=== PATIENT | male | born 2000 | race Caucasian/White ===

== ENCOUNTER → 2023-03-25 | Outpatient (CLI) | payer OTHER, SELFPAY ==
[2023-03-25 12:33] LABS: Erythrocyte Sedimentation Rate 1 mm/hr (0-20)
[2023-03-25 12:37] LABS: Absolute Lymphocyte Count 2.19 X10^3/uL (0.83-4.51); Absolute Neutrophil Count 3.4 X10^3/uL (2.0-7.7); Basophil# 0.02 X10^3/uL; Basophil% 0.3 % (0-1); Eosinophil# 0.16 X10^3/uL; Eosinophils% 2.5 % (0-5); Hematocrit 48.2 % (40-54); Hemoglobin 16.3 g/dL (13.0-16.5); Lymphocyte # 2.19 X10^3/ul (0.83-4.51); Lymphocyte % 34.5 % (19-41); Mean Corp Hgb Conc 33.8 g/dL (32-36); Mean Corpuscular Hgb 29.9 pg (27.0-32.0); Mean Corpuscular Volume 88.3 fL (80-94); Mean Platelet Vol. 9.6 fl (6.2-12.0); Monocyte# 0.57 X10^3/uL; NRBC Flagged by Analyzer 0 % (0-5); Neutrophil # 3.38 X10^3/uL (2.7-7.7); Neutrophil % 53.4 % (47-70); Platelet Count 289 K/mm3 (150-450); RBC Distribution Width CV 12.9 % (11.6-14.6); RBC Distribution Width SD 41.3 fl (35.1-43.9); Red Blood Count 5.46 M/mm3 (4.6-6.2); White Blood Count 6.3 K/mm3 (4.4-11.0)
[2023-03-25 13:12] LABS: ALB/GLOB Ratio 1.2 RATIO (0.9-2.4); AST(SGOT) 27 U/L (15-37); Alanine Aminotransfer ALT/SGPT 55 U/L (16-61); Albumin, Serum 4.2 g/dL (3.2-5.0); Alkaline Phosphatase 88 U/L (45-117); Anion Gap 5 (5-15); BUN 12 mg/dL (7-18); BUN/Creat Ratio 10.5 RATIO (10-20); CRP < 2.90 mg/L (0.0-3.0); Calcium,Total 9.2 mg/dL (8.5-10.1); Chloride 108 mmol/L (98-107); Creatinine, Serum 1.14 mg/dL (0.70-1.30); EST Glomerular Filtration Rate 87 mL/min (>60); Est Glom Filt Rate - Afr Amer 105 mL/min (>60); Globulin 3.4 g/dL (2.2-4.2); Glucose 90 mg/dL (74-106); Potassium 3.9 mmol/L (3.5-5.1); Protein, Total 7.6 g/dL (6.4-8.2); Rheumatoid Factor < 10.0 IU/mL (<15); Sodium Level 140 mmol/L (136-145)
[2023-03-25 14:01] LABS: Hepatitis B Surface Antibody Non-Reactive; Hepatitis B Surface Antigen Non-Reactive (Nonreactive); Hepatitis C Antibody Non-Reactive (Nonreactive)
[2023-03-26 12:09] LABS: CCP IgG Antibodies 5 units (0-19)
[2023-03-29 21:06] LABS: Calprotectin, Stool 41 ug/g (0-120)
== END | disposition home or self-care (01) ==
LOC: MTLAB 10:00
PROVIDERS: PCP Physician Assistant; Referring Provider Internal Medicine Rheumatology; Visit Provider Internal Medicine Rheumatology
DX: M06.4 Inflammatory polyarthropathy (principal); M35.7 Hypermobility syndrome; R19.7 Diarrhea, unspecified
CPT/HCPCS: 36415; 80053; 83993; 85025; 85652; 86140; 86200; 86431; 86706; 86803; 87340

== ENCOUNTER → 2023-06-29 | Outpatient (CLI) | payer BC, SELFPAY ==
--- OUTSIDE RECORDS SUMMARY | 2023-06-29 15:38 | XMS RPT_ITS | CCD ---
Author Name Unknown Address [address] [place] [id number] Organization [facility] Care Team Providers Care [place] Interpreter Name Role Phone Required, No Pcp Unavailable Unavailable Trinh Drake Unavailable Unavailable Ivan Clifton Unavailable Angel Parker Unavailable Stentz Joanie CROCKER Primary Care Provider STENTZ, JOANIE Primary Care Unavailable Dr. vIan Clifton Admitting Elsa vailable Etienne, Dr. Ivan Lemon Attending Elsa vailable Stentz, Joanie Primary Care Unavailable Stentz, Joanie Attending Unavailable Elena, Dr. Angel Gardner Attending Unavail able STENTZ, JOANIE Attending Unavailable STENTZ, JOANIE Primary Care Unavailable STENTZ, JOANIE Attending Unavailable STENTZ, JOANIE Referring Unavailable STENTZ, JOANIE Primary Care Unavailable STENTZ, JOANIE Attending Unavailable STENTZ, JOANIE Referring Unavailable STENTZ, JOANIE Primary Care Unavailable STENTZ, JOANIE Attending Unavailable STENTZ, JOANIE Referring Unavailable STENTZ, JOANIE Primary Care Unavailable Allergies Allergy Classification Reported Allergen(s) Allergy Type Date of Onset Reaction(s) Facility (1 source) peanut Anaphylaxis, Rash, Itching [facility] (6 sources) peanut allergenic extract; Translations: [PEANUT] Drug Allergy 3 Anaphylaxis, Itching, Unknown [facility] Medications Current Medications Medication Drug Class(es) Dates Sig (Normalized) Sig (Original) [id number] 200 actuat albuterol 0.09 mg/actuat metered dose inhaler (1 source) beta2-Adrenergic Agonist take 2 puff(s) by inhalation every six hours for wheezing albuterol (Ventolin HFA) 90 mcg/actuation inhaler Inhale 2 puffs every 6 hours if needed for wheezing. 0 Active 24 hr buPROPion hydrochloride 150 mg extended release oral tablet (1 source) Aminoketone Start: 04-16-2023 End: 07-15-2023 take 1 tablet by mouth once daily in the morning buPROPion XL (Wellbutrin XL) 150 mg 24 hr tablet Indications: Anxiety Take 1 tablet (150 mg) by mouth once daily in the morning. Do not crush, chew, or split. 30 tablet 2 04/16/2023 07/15/2023 Active cholecalciferol 0.125 mg oral tablet (1 source) Vitamin D Start: 04-16-2023 End: 04-15-2024 take 2 tablets by mouth once daily cholecalciferol (Vitamin D3) 5,000 Units tablet Indications: Vitamin D deficiency Take 2 tablets (10,000 Units) by mouth once daily. 180 tablet 3 04/16/2023 04/15/2024 Active diphenhydrAMINE hydrochloride 25 mg oral capsule (1 source) Histamine-1 Receptor Antagonist take 2 capsules by mouth every six hours as needed Benadryl 25 mg oral capsule ; 2 cap(s) orally every 6 hours, As Needed Quantity: 0 Refills: 0 Ordered: 18-Aug-2022 Amanda Eubanks Generic Substitution Allowed ergocalciferol 1.25 mg oral capsule (3 sources) Provitamin D2 Compound Start: 12-16-2022 End: 12-16-2023 take 1 capsule by mouth every week ergocalciferol (Vitamin D-2) 1.25 MG (67989 UT) capsule Indications: Vitamin D deficiency Take 1 capsule (50,000 Units) by mouth 1 (one) time per week. 12 capsule 3 12/16/2022 04/16/2023 Discontinued (Other) fexofenadine (5 sources) Histamine-1 Receptor Antagonist fexofenadine HCl (DOLLY ALLERGY ORAL) Take 1 tablet by mouth. 0 Active Problems Active Problems Problem Classification Problem Date Documented Da te Episodic/Chronic Anxiety disorders (6 sources) Anxiety; Translations: [Anxiety disorder, unspecified] Onset: 02-26-2023 02-26-2023 Chronic Asthma (5 sources) Mild intermittent asthma; Translations: [Mild intermittent asthma, uncomplicated] Onset: 01-16-2023 01-16-2023 Chronic Nutritional deficiencies (4 sources) Vitamin D deficiency; Translations: [Vitamin D deficiency, unspecified] Onset: 04-16-2023 04-16-2023 Chronic Other connective tissue disease (1 source) Pain in left hand; Translations: [Pain in left hand] Onset: 12-15-2022 Episodic Other connective tissue disease (1 source) Pain in right hand; Translations: [Pain in right hand] Onset: 12-15-2022 Episodic Other gastrointestinal disorders (9 sources) Irritable bowel syndrome with diarrhea; Translations: [Irritable bowel syndrome with diarrhea] Onset: 12-15-2022 12-15-2022 Chronic Other gastrointestinal disorders (1 source) Irritable bowel syndrome with diarrhea; Translations: [Irritable bowel syndrome with diarrhea] Onset: 12-15-2022 Chronic Other gastrointestinal disorders (4 sources) Excessive flatus; Translations: [Flatulence] Onset: 01-16-2023 01-16-2023 Episodic Other non-traumatic joint disorders (8 sources) Joint pain; Translations: [Pain in unspecified joint] Onset: 12-15-2022 12-15-2022 Episodic Other non-traumatic joint disorders (7 sources) Pain in unspecified joint; Translations: [Pain in unspecified joint] Onset: 12-15-2022 Episodic Other nutritional; endocrine; and metabolic disorders (5 sources) Obesity; Translations: [Other obesity due to excess calories] Onset: 12-15-2022 12-15-2022 Chronic Other nutritional; endocrine; and metabolic disorders (4 sources) Other obesity due to excess calories; Translations: [Other obesity due to excess calories] Onset: 12-15-2022 Chronic Other nutritional; endocrine; and metabolic disorders (4 sources) Body mass index (BMI) 35.0-35.9, adult; Translations: [Body mass index (BMI) 35.0-35.9, adult] Onset: 12-15-2022 Chronic Other nutritional; endocrine; and metabolic disorders (1 source) Obesity caused by energy imbalance; Translations: [Other obesity due to excess calories] Onset: 12-15-2022 12-15-2022 Chronic Other upper respiratory disease (2 sources) Seasonal allergy 10-15-2021 Chronic Past or Other Problems Problem Classification Problem Date Documented Da te Episodic/Chronic Allergic reactions (4 sources) Allergic reaction to food; Translations: [Allergy to other foods] Onset: 08-18-2022 08-18-2022 Episodic E Codes: Adverse effects of medical drugs (1 source) Allergic reaction to substance; Translations: [Other drug allergy] Resolved: 08-18-2022 08-18-2022 Episodic Malaise and fatigue (5 sources) Fatigue; Translations: [Other fatigue] Onset: 12-15-2022 12-15-2022 Episodic Nausea and vomiting (1 source) Vomiting, unspecified; Translations: [Vomiting, unspecified] Onset: 08-18-2022 Episodic Other inflammatory condition of skin (1 source) Pruritus, unspecified; Translations: [Pruritus, unspecified] Onset: 08-18-2022 Episodic Other lower respiratory disease (1 source) Shortness of breath; Translations: [Shortness of breath] Onset: 08-18-2022 Episodic Other upper respiratory infections (1 source) Acute pharyngitis, unspecified; Translations: [Acute pharyngitis, unspecified] Onset: 08-18-2022 Episodic Unclassified (4 sources) Onset: 12-15-2022 Resolved: 01-16-2023 12-15-2022 Results Test Name Value Interpretation Reference Range Facil ity Vital Signs Date Time Vital Sign Value Performing Clinician Facility 04-16-2023 12:14-0400 Body height 185.4 cm Joanie Stentz PA-C Work Phone: [facility] 04-16-2023 12:14-0400 Body mass index (BMI) [Ratio] 33.78 kg/m2 Joanie Stentz PA-C Work Phone: [facility] 04-16-2023 12:14-0400 Body weight 116.12 kg Joanie Stentz PA-C Work Phone: [facility] 04-16-2023 12:14-0400 Diastolic blood pressure 82 mm[Hg] Joanie Stentz PA-C Work Phone: [facility] 04-16-2023 12:14-0400 Heart rate 84 /min Joanie Stentz PA-C Work Phone: [facility] 04-16-2023 12:14-0400 Systolic blood pressure 128 mm[Hg] Joanie Stentz PA-C Work Phone: [facility] 02-26-2023 13:14-0400 Body height 185.4 cm Joanie Stentz PA-C Work Phone: [facility] 02-26-2023 13:14-0400 Body mass index (BMI) [Ratio] 35.36 kg/m2 Joanie Stentz PA-C Work Phone: [facility] 02-26-2023 13:14-0400 Body weight 121.56 kg Joanie Stentz PA-C Work Phone: [facility] 02-26-2023 13:14-0400 Diastolic blood pressure 84 mm[Hg] Joanie Stentz PA-C Work Phone: [facility] 02-26-2023 13:14-0400 Heart rate 73 /min Joanie Stentz PA-C Work Phone: [facility] 02-26-2023 13:14-0400 Systolic blood pressure 122 mm[Hg] Joanie Stentz PA-C Work Phone: [facility] 01-16-2023 15:38-0400 Body height 185.4 cm Joanie Stentz PA-C Work Phone: [facility] 01-16-2023 15:38-0400 Body mass index (BMI) [Ratio] 34.96 kg/m2 Joanie Stentz PA-C Work Phone: [facility] 01-16-2023 15:38-0400 Body weight 120.2 kg Joanie Stentz PA-C Work Phone: [facility] 01-16-2023 15:38-0400 Diastolic blood pressure 88 mm[Hg] Joanie Stentz PA-C Work Phone: [facility] 01-16-2023 15:38-0400 Heart rate 80 /min Joanie Stentz PA-C Work Phone: [facility] 01-16-2023 15:38-0400 Systolic blood pressure 130 mm[Hg] Joanie Stentz PA-C Work Phone: [facility] 12-15-2022 16:11-0400 Body height 185.4 cm Joanie Stentz PA-C Work Phone: [facility] 12-15-2022 16:11-0400 Body mass index (BMI) [Ratio] 35.49 kg/m2 Joanie Stentz PA-C Work Phone: [facility] 12-15-2022 16:11-0400 Body weight 122.02 kg Joanie Stentz PA-C Work Phone: [facility] 12-15-2022 16:11-0400 Diastolic blood pressure 80 mm[Hg] Joanie Stentz PA-C Work Phone: [facility] 12-15-2022 16:11-0400 Heart rate 86 /min Joanie Stentz PA-C Work Phone: [facility] 12-15-2022 16:11-0400 Systolic blood pressure 122 mm[Hg] Joanie Stentz PA-C Work Phone: [facility] 08-18-2022 23:30-0500 Diastolic blood pressure 88 mm[Hg] No Pcp Required [facility] 08-18-2022 23:30-0500 Heart rate 81 /min No Pcp Required [facility] 08-18-2022 23:30-0500 Respiratory rate 16 /min No Pcp Required [facility] 08-18-2022 23:30-0500 SaO2% (BldA) [Mass fraction] 98 % No Pcp Required [facility] 08-18-2022 23:30-0500 Systolic blood pressure 126 mm[Hg] No Pcp Required [facility] 08-18-2022 21:37-0500 Body height 185.4 cm No Pcp Required [facility] 08-18-2022 21:37-0500 Body temperature 97.7 [degF] No Pcp Required [facility] 08-18-2022 21:37-0500 Body weight 113.6 kg No Pcp Required [facility] 10-23-2021 22:11-0400 Diastolic blood pressure 97 mm[Hg] No Pcp Required [facility] 10-23-2021 22:11-0400 Heart rate 81 /min No Pcp Required [facility] 10-23-2021 22:11-0400 Respiratory rate 18 /min No Pcp Required [facility] 10-23-2021 22:11-0400 SaO2% (BldA) [Mass fraction] 97 % No Pcp Required [facility] 10-23-2021 22:11-0400 Systolic blood pressure 128 mm[Hg] No Pcp Required [facility] 10-23-2021 21:05-0400 Body height 182.8 cm No Pcp Required [facility] 10-23-2021 21:05-0400 Body temperature 98.06 [degF] No Pcp Required [facility] 10-23-2021 21:05-0400 Body weight 110 kg No Pcp Required [facility] Encounters Encounter Date Encounter Type Care Provider Facility Start: 04-16-2023 End: 04-16-2023 ambulatory [facility] Ambulatory Start: 04-16-2023 End: 04-16-2023 Office outpatient visit 25 minutes Joanieleslee Romo PA-C Work Phone: [facility] Practice Procedures Date Procedure Procedure Detail Performing Clinician Start: 04-16-2023 FOLLOW UP IN FAMILY MEDICINE JOANIE STENTZ Start: 02-26-2023 FOLLOW UP IN FAMILY MEDICINE JOANIE STENT Start: 01-16-2023 FOLLOW UP IN FAMILY MEDICINE JOANIE STENT Start: 12-15-2022 MASOUD WITHOUT REFLEX DEENA JOANIE STENTZ Start: 12-15-2022 C-reactive protein JUST IN STENTZ Start: 12-15-2022 CBC panel - Blood by Automated count JOANIE STENT Start: 12-15-2022 Comprehensive metabo lic 2000 panel - Serum or Plasma JOANIE STENT Start: 12-15-2022 Cyanocobalamin vitamin b-12 JOANIE STENTZ Start: 12-15-2022 Ferritin [Mass/volum e] in Serum or Plasma JOANIE STENTZ Start: 12-15-2022 RHEUMATOID FACTOR JUSTI N STENTZ Start: 12-15-2022 SEDIMENTATION RATE, AUTOMATED JOANIE STENTZ Start: 12-15-2022 TSH WITH REFLEX TO F REE T4 IF ABNORMAL JOANIE STENTZ Start: 12-15-2022 VITAMIN D 25-HYDROXY,TOTAL JOANIE STENTZ Plan of Treatment Date Care Activity Detail Author Start: 2052 Zoster Vaccines (1 o f 2) Zoster Vaccines (1 of 2) [facility] Start: 07-02-2023 End: 07-02-2023 Patient encounter procedure 07/02/2023 10:00 AM EST Office Visit [facility] [address] [place] [id number] Joanie Romo PA-C [address] [facility] [place] [address] [facility] Start: 02-26-2023 End: 02-26-2023 Patient encounter procedure 02/26/2023 1:15 PM EDT Office Visit [facility] [address] [place] [id number] Joanie Romo PA-C [address] [facility] [place] [address] [facility] Start: 02-20-2023 Influenza vaccination [facility] Start: 01-16-2023 End: 01-16-2023 Patient encounter procedure 01/16/2023 3:45 PM EDT Office Visit [facility] [address] [place] [id number] Joanie Romo PA-C [address] [facility] [place] [address] [facility] Start: 12-15-2022 End: 12-16-2023 25-hydroxyvitamin D3 [Mass/volume] in Serum or Plasma Vitamin D, Total Lab Routine Fatigue, unspecified type Expected: 12/15/2022 (Approximate), Expires: 12/16/2023 [facility] Work Phone: Payers Date Payer Category Payer Unknown 2020 Unknown [id number] 2002 Unknown [id number] [id number] [id number] 2002 Unknown [id number] 2.16.8 [id number] 2002 Unknown [id number] 2.16.8 [id number] 2002 Unknown [id number] 2.16.8 [id number] 2002 Unknown [id number] 2.16.8 [id number] 2002 Unknown [id number] 2.16.8 [id number] 2002 Unknown [id number] 2.16.8 [id number] 2002 Unknown [id number] 2.16.84 [id number] Social History Date Type Detail Facility [facility] Tobacco smoking consumption unknown [facility] Start: 12-15-2022 End: 01-16-2023 History of Social function [facility] Work Phone: Start: 12-15-2022 End: 01-16-2023 Patient Health Questionnaire 2 item (PHQ-2) [Reported] [facility] Work Phone: Start: 2000 Sex Assigned At Not on file [facility] Work Phone: Start: 12-05-2022 End: 04-16-2023 Exposure to SARS-CoV-2 (event) Not sure [facility] Start: 01-16-2023 Tobacco smoking status NHIS Never smoked tobacco [facility] Work Phone: Start: 01-16-2023 Tobacco use and exposure Smokeless tobacco non-user [facility] Work Phone: Clinical Notes 12-15-2022 to 04-16-2023 Joanie Romo, LIZZETTE - 04/16/2023 12:15 PM EDTJustin Stentz, LIZZETTE - 02/26/2023 1:15 PM EDTJustin Stentz, LIZZETTE - 01/16/2023 3:45 PM EDTJustin Stentz, LIZZETTE - 12/15/2022 4:15 PM EDTPatient Instructions Note Date & Type Note Facility 04-16-2023 History of Presen t illness Narrative Subjective Patient ID: Julian Jernigan is a 22 y.o. male who presents for 2 month med check . HPI Senior year at [employer]. IBS: Endorses chronic stomach concerns. Upset stomach with loose stool for the last 4 years, very few days will he have firm stool. Excessive gas. Has been taking fiber gummies 10mg daily, has increased yogurt intake. Has ruled out gluten through diet, avoided dairy for 7 days and it did not seem to improve completely. Symptoms have been more mild lately, feels less stressed being back in school, feels lower stress level improves GI symptoms. Has been doing well with this. Has been eating smaller portions and hydrating better, less soda. JOINT PAIN: Multiple joint pain for years now, pain is described as achy all over at a 2/10, knuckles/shoulders constant 4/10. Pressure changes and if he sleeps wrong or overuses a joint pain will become sharp and 7/10. 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 Has been just dealing with this since then. Can't remember if Xrays in the past. Has used an arthritis cream in the past for his hands which helps for only about 1 hour. Symptoms are only mildly relieved with ibuprofen. Pain is in multiple joints, worse from BL shoulder distally through hands, then BL hips to knees. He did see an arthritis specialist about 2 years ago who did not find cause of joint pain. BL hand Xray recently unremarkable. Labs recently unremarkable. Saw Dr. Bob, she would like him to see GI in [place]. He has been unable to schedule this. He will ask her about it again when he sees her tomorrow. Still no diagnosis. LOW D: D level 21 12/15/22, started 50,000IU weekly, has not been compliant. Would like to go to daily. SEASONAL ALLERGIES: Dolly prn effective. ASTHMA: Endorses hx of asthma, has rescue on hand prn. Has only used inhaler once since last visit. ANXIETY: Started Effexor 75mg last visit 2 months ago. GABINO score of 10, PHQ score of 9. He sees therapist every other week. He does endorse Effexor has helped. He endorses racing thoughts chronically and split focus as well. Review of Systems Constitutional: Negative. Respiratory: Negative. Cardiovascular: Negative. Gastrointestinal: Negative. Objective BP 128/82 Pulse 84 Ht 1.854 m (6' 1 ) Wt 116 kg (256 lb) BMI 33.78 kg/m Physical Exam Constitutional: General: He is not in acute distress. Appearance: Normal appearance. He is not ill-appearing. HENT: Head: Normocephalic and atraumatic. Eyes: Extraocular Movements: Extraocular movements intact. Conjunctiva/sclera: Conjunctivae normal. Cardiovascular: Rate and Rhythm: Normal rate. Pulmonary: Effort: Pulmonary effort is normal. Abdominal: General: There is no distension. Musculoskeletal: General: Normal range of motion. Cervical back: Normal range of motion. Skin: General: Skin is warm and dry. Neurological: General: No focal deficit present. Mental Status: He is alert and oriented to person, place, and time. Psychiatric: Mood and Affect: Mood normal. Behavior: Behavior normal. Thought Content: Thought content normal. Judgment: Judgment normal. Assessment/Plan Switch Vit D to daily [id number]. Continue Effexor, start wellbutrin 150mg daily. Continue with Dr. Bob. Follow up 3 months or sooner prn. documented in this encounter [facility] Work Phone: 02-26-2023 History of Presen t illness Narrative Subjective Patient ID: Julian Jernigan is a 22 y.o. male who presents for 1 month f/u, pt still having all over joint pain. HPI Senior year at [employer]. IBS: Endorses chronic stomach concerns. Upset stomach with loose stool for the last 4 years, very few days will he have firm stool. Excessive gas. Has been taking fiber gummies 10mg daily, has increased yogurt intake. Has ruled out gluten through diet, avoided dairy for 7 days and it did not seem to improve completely. Symptoms have been more mild lately, feels less stressed being back in school, feels lower stress level improves GI symptoms. JOINT PAIN: Multiple joint pain for years now, pain is described as achy all over at a 2/10, knuckles/shoulders constant 4/10. Pressure changes and if he sleeps wrong or overuses a joint pain will become sharp and 7/10. 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 Has been just dealing with this since then. Can't remember if Xrays in the past. Has used an arthritis cream in the past for his hands which helps for only about 1 hour. Symptoms are only mildly relieved with ibuprofen. Pain is in multiple joints, worse from BL shoulder distally through hands, then BL hips to knees. He did see an arthritis specialist about 2 years ago who did not find cause of joint pain. BL hand Xray recently unremarkable. Labs recently unremarkable. Was unable to see Dr. Bob d/t aunt passing away, he is in process of rescheduling currently. LOW D: D level 21 12/15/22, started 50,000IU weekly. SEASONAL ALLERGIES: Dolly prn effective. ASTHMA: Endorses hx of asthma, has rescue on hand prn. Using inhaler about 4 times monthly. ANXIETY: Endorses hx of anxiety, not medicated. GABINO score of 15, PHQ score of 8. Would like to start medication. Has sees therapist every other week. Review of Systems Constitutional: Negative. Respiratory: Negative. Cardiovascular: Negative. Gastrointestinal: Positive for diarrhea. Objective BP 122/84 Pulse 73 Ht 1.854 m (6' 1 ) Wt 122 kg (268 lb) BMI 35.36 kg/m Physical Exam Constitutional: General: He is not in acute distress. Appearance: Normal appearance. He is not ill-appearing. HENT: Head: Normocephalic and atraumatic. Eyes: Extraocular Movements: Extraocular movements intact. Conjunctiva/sclera: Conjunctivae normal. Cardiovascular: Rate and Rhythm: Normal rate. Pulmonary: Effort: Pulmonary effort is normal. Abdominal: General: There is no distension. Musculoskeletal: General: Normal range of motion. Cervical back: Normal range of motion. Skin: General: Skin is warm and dry. Neurological: General: No focal deficit present. Mental Status: He is alert and oriented to person, place, and time. Psychiatric: Mood and Affect: Mood normal. Behavior: Behavior normal. Thought Content: Thought content normal. Judgment: Judgment normal. Assessment/Plan We will follow up after he sees Dr. Bob. Start Effexor XR 75mg daily. Rx meloxicam prn joint pain until he sees Dr. Bob. Follow up 2 months or sooner prn. documented in this encounter [facility] Work Phone: 01-16-2023 History of Presen t illness Narrative Subjective Patient ID: Julian Jernigan is a 22 y.o. male who presents for 1 month f/u stomach issues worse, joint pain . HPI Senior year at [employer]. IBS: Endorses chronic stomach concerns. Upset stomach with loose stool for the last 4 years, very few days will he have firm stool. Excessive gas. Has been taking fiber gummies 10mg daily, has increased yogurt intake, has not seemed to improve symptoms. Has ruled out gluten through diet, avoided dairy for 7 days and it did not seem to improve completely. JOINT PAIN: Multiple joint pain for years now, pain is described as achy all over at a 2/10, knuckles/shoulders constant 4/10. Pressure changes and if he sleeps wrong or overuses a joint pain will become sharp and 7/10. 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 Has been just dealing with this since then. Can't remember if Xrays in the past. Has used an arthritis cream in the past for his hands which helps for only about 1 hour. Symptoms are only mildly relieved with ibuprofen. Pain is in multiple joints, worse from BL shoulder distally through hands, then BL hips to knees. He did see an arthritis specialist about 2 years ago who did not find cause of joint pain. BL hand Xray recently unremarkable. Labs recently unremarkable. Will see Dr. Bob in [place] in about 1 month. LOW D: D level 21 12/15/22, started 50,000IU weekly. SEASONAL ALLERGIES: Dolly prn effective. ASTHMA: Endorses hx of asthma, has rescue on hand prn. Using inhaler about 4 times monthly. ANXIETY: Endorses hx of anxiety, not medicated. Stable currently. Review of Systems Constitutional: Negative. Respiratory: Negative. Cardiovascular: Negative. Gastrointestinal: Negative. Objective BP 130/88 Pulse 80 Ht 1.854 m (6' 1 ) Wt 120 kg (265 lb) BMI 34.96 kg/m Physical Exam Constitutional: General: He is not in acute distress. Appearance: Normal appearance. He is not ill-appearing. HENT: Head: Normocephalic and atraumatic. Eyes: Extraocular Movements: Extraocular movements intact. Conjunctiva/sclera: Conjunctivae normal. Cardiovascular: Rate and Rhythm: Normal rate. Pulmonary: Effort: Pulmonary effort is normal. Abdominal: General: There is no distension. Musculoskeletal: General: Normal range of motion. Cervical back: Normal range of motion. Skin: General: Skin is warm and dry. Neurological: General: No focal deficit present. Mental Status: He is alert and oriented to person, place, and time. Psychiatric: Mood and Affect: Mood normal. Behavior: Behavior normal. Thought Content: Thought content normal. Judgment: Judgment normal. Assessment/Plan Rx loperamide TID prn, take before meals. Advised otc gas relief for excessive gas, avoid trigger foods. We will follow up after he sees Dr. Bob next month. documented in this encounter [facility] Work Phone: 12-15-2022 History of Presen t illness Narrative Subjective Patient ID: Julian Jernigan is a 22 y.o. male who presents for new pt having issues with all over joint pain (Pt has issues with regulating when full while eating, bloating, loose stools, has BM soon after eating). HPI Senior year at [facility]. IBS: Endorses chronic stomach concerns. Upset stomach with loose stool for the last 4 years, very few days will he have firm stool. JOINT PAIN: Multiple joint pain for years now, pain is described as achy all over at a 2/10, knuckles/shoulders constant 4/10. Pressure changes and if he sleeps wrong or overuses a joint pain will become sharp and 7/10. 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 Has been just dealing with this since then. Can't remember if Xrays in the past. Has used an arthritis cream in the past for his hands which helps for only about 1 hour. Symptoms are only mildly relieved with ibuprofen. Pain is in multiple joints, worse from BL shoulder distally through hands, then BL hips to knees. He did see an arthritis specialist about 2 years ago who did not find cause of joint pain. Endorses hx of asthma, has rescue on hand prn. Using inhaler about 4 times monthly. Endorses hx of anxiety, not medicated. Review of Systems Constitutional: Positive for fatigue. Respiratory: Negative. Cardiovascular: Negative. Gastrointestinal: Negative. Objective BP 122/80 Pulse 86 Ht 1.854 m (6' 1 ) Wt 122 kg (269 lb) BMI 35.49 kg/m Physical Exam Constitutional: General: He is not in acute distress. Appearance: Normal appearance. He is not ill-appearing or toxic-appearing. HENT: Head: Normocephalic and atraumatic. Eyes: Extraocular Movements: Extraocular movements intact. Conjunctiva/sclera: Conjunctivae normal. Cardiovascular: Rate and Rhythm: Normal rate and regular rhythm. Heart sounds: Normal heart sounds. No murmur heard. No gallop. Pulmonary: Effort: Pulmonary effort is normal. Breath sounds: Normal breath sounds. No stridor. No wheezing. Abdominal: General: Bowel sounds are normal. There is no distension. Palpations: Abdomen is soft. Tenderness: There is no abdominal tenderness. There is no right CVA tenderness, left CVA tenderness, guarding or rebound. Musculoskeletal: General: Normal range of motion. Cervical back: Neck supple. Skin: General: Skin is warm and dry. Findings: No erythema or rash. Neurological: General: No focal deficit present. Mental Status: He is alert and oriented to person, place, and time. Psychiatric: Mood and Affect: Mood normal. Behavior: Behavior normal. Thought Content: Thought content normal. Judgment: Judgment normal. Assessment/Plan BL hand Xray Ordered an array of labs looking for abnormalities concerning joint paint and general health. Advised increased fiber and probiotics for IBS as well as food diary to identify problem foods, most likely stress/anxiety is a component of IBS as well. He does worry concerning his health quite often and think he may be mentally causing some of his symptoms specifically IBS. We will follow up in 1 month or sooner prn. documented in this encounter [facility] Work Phone: 12-15-2022 Instructions Joanie Romo PA-C - 12/15/2022 4:15 PM EDT Ways to Help Prevent Falls at Home Quick Tips ? Ask for help if you need it. Most people want to help! ? Get up slowly after sitting or laying down ? Wear a medical alert device or keep cell phone in your pocket ? Use night lights, especially areas near a bathroom ? Keep the items you use often within reach on a small stool or end table ? Use an assistive device such as walker or cane, as directed by provider/physical therapy ? Use a non-slip mat and grab bars in your bathroom. Look for home health sections for best options Other Areas to Focus On ? Exercise and nutrition: Regular exercise or taking a falls prevention class are great ways improve strength and balance. Don t forget to stay hydrated and bring a snack! ? Medicine side effects: Some medicines can make you sleepy or dizzy, which could cause a fall. Ask your healthcare provider about the side effects your medicines could cause. Be sure to let them know if you take any vitamins or supplements as well. ? Tripping hazards: Remove items you could trip on, such as loose mats, rugs, cords, and clutter. Wear closed toe shoes with rubber soles. ? Health and wellness: Get regular checkups with your healthcare provider, plus routine vision and hearing screenings. Talk with your healthcare provider about: o Your medicines and the possible side effects - bring them in a bag if that is easier! o Problems with balance or feeling dizzy o Ways to promote bone health, such as Vitamin D and calcium supplements o Questions or concerns about falling *Ask your healthcare team if you have questions [facility]2021 documented in this encounter [facility] Work Phone: documented in this encounter [facility] Work Phone: Evaluation note* Diagnosis Irritable bowel syndrome with diarrhea- Primary Irritable bowel syndrome Arthralgia, unspecified joint Class 2 obesity due to excess calories without serious comorbidity with body mass index (BMI) of 35.0 to 35.9 in adult Excessive gas Mild intermittent asthma without complication documented in this encounter [facility] Work Phone: Evaluation note* Diagnosis Arthralgia, unspecified joint- Primary Anxiety Anxiety state, unspecified Irritable bowel syndrome with diarrhea Irritable bowel syndrome documented in this encounter [facility] Work Phone: Evaluation note* Diagnosis Anxiety- Primary Anxiety state, unspecified Vitamin D deficiency Arthralgia, unspecified joint Mild intermittent asthma without complication Irritable bowel syndrome with diarrhea Irritable bowel syndrome documented in this encounter [facility] Work Phone: Reason for referral (narrative)* Consultation (Routine) - Authorized Specialty Diagnoses / Procedures Referred By Jorge Luis holt Referred To Contact Primary Care Procedures Follow Up In Primary Care Joanie Romo PA-C [address] [facility] [place], [place] [address] Referral ID Status Reason Start Date Expiration Date V isits Requested Visits Authorized [id number] Authorized 12/15/2022 06/13/2023 1 1 * Imaging (Routine) - Authorized Specialty Diagnoses / Procedures Referred By Contac t Referred To Contact Radiology Diagnoses Arthralgia, unspecified joint Procedures XR hand 1-2 views bilateral Joanie Romo PA-C [address] [facility] [place], [place] [id number] Referral ID Status Reason Start Date Expiration Date Visits Requested Visits Authorized [id number] Authorized Perform Procedure 12/15/2022 06/13/2023 1 1 [facility] Work Phone: Reeqsg for referral (narrative)* Consultation (Routine) - Authorized Specialty Diagnoses / Procedures Referred By Contac t Referred To Contact Primary Care Procedures Follow Up In Primary Care - Established Joanie Romo PA-C [address] [facility] [place], [place] [address] Referral ID Status Reason Start Date Expiration Date V isits Requested Visits Authorized [id number] Authorized 01/16/2023 07/15/2023 1 1 [facility] Work Phone: reason for referral (narrative)* Consultation (Routine) - Authorized Specialty Diagnoses / Procedures Referred By Contac t Referred To Contact Primary Care Procedures Follow Up In Primary Care - Established Joanie Romo PA-C [address] [facility] [place], [place] [id number] Referral ID Status Reason Start Date Expiration Date V isits Requested Visits Authorized [id number] Authorized 02/26/2023 08/25/2023 1 1 [facility] Work Phone: Rervzu for referral (narrative)* Consultation (Routine) - Authorized Specialty Diagnoses / Procedures Referred By Contac t Referred To Contact Primary Care Procedures Follow Up In Primary Care - Established Joanie Romo PA-C [address] [facility] [place], [place] [address] [place] [phone] Referral ID Status Reason Start Date Expiration Date V isits Requested Visits Authorized [id number] Authorized 04/16/2023 04/15/2024 1 1 [facility] Work Phone: Summary Purpose Family History No Family History Records FoundNo Family History Records FoundNo Family History Records Found Advance Directives No Advanced Directives Records FoundNo Advanced Directives Records FoundNo Advanced Directives Records Found Additional Source Comments <item><item> Privacy Markings (unrecogniz ed section and content) Section Author: Brooklyn Rothman PROHIBITION ON REDISCLOSURE OF CONFIDENTIAL INFORMATION This notice accompanies a disclosure of information concerning a client made to you with the consent of such client. Section Author: Brooklyn Rothman PROHIBITION ON REDISCLOSURE OF CONFIDENTIAL INFORMATION This notice accompanies a disclosure of information concerning a client made to you with the consent of such client. Reason for Visit (unrecogniz ed section and content) Specialty Diagnoses / Procedures Referred By Jorge Luis t Referred To Contact Primary Care Procedures Follow Up In Primary Care - Established Joanie Romo PA-C [address] [facility] [place], [facility] [address] [place] [phone] Referral ID Status Reason Start Date Expiration Date V isits Requested Visits Authorized [id number] Authorized 02/26/2023 08/25/2023 1 1 Reason Comments new pt having issues with al l over joint pain Pt has issues with regulating when full while eating, bloating, loose stools, has BM soon after eating Reason Comments 1 month f/u stomach issues worse, joint pain Specialty Diagnoses / Procedures Referred By Jorge Luis t Referred To Contact Primary Care Procedures Follow Up In Primary Care Joanie Romo PA-C [address] [facility], [facility] [address] [place] [address] Referral ID Status Reason Start Date Expiration Date V isits Requested Visits Authorized [id number] Authorized 12/15/2022 06/13/2023 1 1 Reason Comments 1 month f/u, pt still having all over javon int pain Referral ID Status Reason Start Date Expiration Date V isits Requested Visits Authorized [id number] Authorized 01/16/2023 07/15/2023 1 1 Care Teams (unrecognized sec tion and content) Park Interpreter Relationship Specialty Start Date End Date Joanie Romo PA-C [address] [facility], [place] [address] PCP - General Family Medicine 12/04/22 Park Interpreter Relationship Specialty Start Date End Date Joanie Romo PA-C [address] [facility] [place], [place] [address] PCP - General Family Medicine 12/04/22 Park Interpreter Relationship Specialty Start Date End Date Joanie Romo PA-C [address] [facility], [place] [address] PCP - General Family Medicine 12/04/22 (unrecognized sect ion and content) No Status Records FoundNo Status Records FoundNo Status Records Found INFORMATION SOURCE (unrecogn ized section and content) DATE CREATED AUTHOR AUTHOR'S ISAAC ATION 12/20/2022 [facility] DATE CREATED AUTHOR AUTHOR'S ORGANIZ ATION 04/19/2023 [facility] FOR RECORDS PERTAINING TO PATIENTS WHO ARE OR HAVE BEEN ENROLLED IN A CHEMICAL DEPENDENCY/SUBSTANCEABUSE PROGRAM, SOME INFORMATION MAY BE OMITTED. This clinical summary was aggregated from multiple sources. Caution should be exercised in using it in the provision of clinical care. This summary normalizes information from multiple sources, and as a consequence, information in this document may materially change the coding, format and clinical context of patient data. In addition, data may be omitted in some cases. CLINICAL DECISIONS SHOULD BE BASED ON THE PRIMARY CLINICAL RECORDS. [facility] [employer] provides no warranty or guarantee of the accuracy or completeness of information in this document.
[2023-07-01 15:08] LABS: Endomysial Antibody IgA Negative (Negative); Immunoglobulin A 147 mg/dL (90-386); t-Transglutaminase IgA <2 U/mL (0-3)
== END | disposition home or self-care (01) ==
PROVIDERS: PCP Physician Assistant; Referring Provider Internal Medicine Gastroenterology; Visit Provider Internal Medicine Gastroenterology
DX: R19.7 Diarrhea, unspecified (principal)
CPT/HCPCS: 36415; 82784; 83516; 86255

== ENCOUNTER → 2023-07-13 | Outpatient (CLI) | payer BC, SELFPAY ==
--- OUTSIDE RECORDS SUMMARY | 2023-07-13 16:20 | XMS RPT_ITS | CCD ---
Author Name Unknown Address [address] [facility] [address] [place] [id number] Organization [facility] Care Team Providers Care Salesperson [employer] Name Role Phone Required, No Pcp Unavailable Unavailable Trinh Drake Unavailable Unavailable Ivan Clifton Unavailable [phone] Angel Parker Unavailable Stentz Joanie CROCKER Primary Care Provider STENTZ, JOANIE Primary Care Unavailable Etienne, Dr. Ivan Lemon Admitting Elsa vailable Etienne, Dr. Ivan Lemon Attending Elsa vailable Stentz, Joanie Primary Care Unavailable Stentz, Joanie Attending Unavailable [place], Dr. Angel Gardner Attending Unavail able STENTZ, [...] Facility (1 source) peanut Anaphylaxis, Rash, Itching [facility] (7 sources) peanut allergenic extract; Translations: [PEANUT] Drug Allergy 3 Anaphylaxis, Itching, Unknown [facility] Medications Current Medications Medication Drug Class(es) Dates Sig (Normalized) Sig (Original) [id number] 200 actuat albuterol 0.09 mg/actuat metered dose inhaler (2 sources) beta2-Adrenergic Agonist Start: 06-08-2023 take 2 puff(s) by inhalation every six hours for wheezing albuterol (Ventolin HFA) 90 mcg/actuation inhaler Indications: Mild intermittent asthma without complication Inhale 2 puffs every 6 hours if needed for wheezing. 18 g 1 06/08/2023 Active Problems Active Problems Problem Classification Problem Date Documented Da te Episodic/Chronic Anxiety disorders (8 sources) Anxiety; Translations: [Anxiety disorder, unspecified] Onset: 02-26-2023 02-26-2023 Chronic Asthma (9 sources) Mild intermittent asthma; Translations: [Mild intermittent asthma, uncomplicated] Onset: 01-16-2023 01-16-2023 Chronic Nutritional deficiencies (6 sources) Vitamin D deficiency; Translations: [Vitamin D deficiency, unspecified] Onset: 04-16-2023 04-16-2023 Chronic Other connective tissue disease (1 source) Pain in left hand; Translations: [Pain in left hand] Onset: 12-15-2022 Episodic Other connective tissue disease (1 source) Pain in right hand; Translations: [Pain in right hand] Onset: 12-15-2022 Episodic Other gastrointestinal disorders (10 sources) Irritable bowel syndrome with diarrhea; Translations: [Irritable bowel syndrome with diarrhea] Onset: 12-15-2022 12-15-2022 Chronic Other gastrointestinal disorders (1 source) Irritable bowel syndrome with diarrhea; Translations: [Irritable bowel syndrome with diarrhea] Onset: 12-15-2022 Chronic Other nutritional; endocrine; and metabolic disorders (5 [...] Chronic Other nutritional; endocrine; and metabolic disorders (2 sources) Obesity caused by energy imbalance; Translations: [Other [...] Translations: [Vomiting, unspecified] Onset: 08-18-2022 Episodic Other gastrointestinal disorders (5 sources) Excessive flatus; Translations: [Flatulence] Onset: 01-16-2023 01-16-2023 Episodic Other inflammatory condition of skin (1 source) Pruritus, unspecified; Translations: [Pruritus, unspecified] Onset: 08-18-2022 Episodic Other lower respiratory disease (1 source) Shortness of breath; Translations: [Shortness of breath] Onset: 08-18-2022 Episodic Other non-traumatic joint disorders (9 sources) Joint pain; Translations: [Pain in unspecified joint] Onset: 12-15-2022 12-15-2022 Episodic Other non-traumatic joint disorders (7 sources) Pain in unspecified joint; Translations: [Pain in unspecified joint] Onset: 12-15-2022 Episodic Other upper respiratory infections (1 source) Acute pharyngitis, unspecified; Translations: [Acute pharyngitis, unspecified] Onset: 08-18-2022 Episodic Unclassified (5 sources) Onset: 12-15-2022 Resolved: 06-29-2023 12-15-2022 Results Test Name Value Interpretation Reference Range Facil ity Vital Signs Date Time Vital Sign Value Performing Clinician Facility 06-29-2023 15:48-0500 Body height 185.4 cm Joanie Castillo PA-C Work Phone: [facility] 06-29-2023 15:48-0500 Body mass index (BMI) [Ratio] 33.64 kg/m2 Joanie Castillo PA-C Work Phone: [facility] 06-29-2023 15:48-0500 Body weight 115.67 kg Joanie Stentz PA-C Work Phone: [facility] 06-29-2023 15:48-0500 Diastolic blood pressure 71 mm[Hg] Joanie Stentz PA-C Work Phone: [facility] 06-29-2023 15:48-0500 Heart rate 80 /min Joanie Stentz PA-C Work Phone: [facility] 06-29-2023 15:48-0500 Systolic blood pressure 106 mm[Hg] Joanie Stentz PA-C Work Phone: [facility] 04-16-2023 12:14-0400 Body height 185.4 cm Joanie Stentz PA-C Work Phone: [facility] 04-16-2023 12:14-0400 Body mass index (BMI) [Ratio] 33.78 kg/m2 Joanie Stentz PA-C Work Phone: [facility] 04-16-2023 12:14-0400 Body weight 116.12 kg Joanie Stentz PA-C Work Phone: [facility] 04-16-2023 12:14-0400 Diastolic blood pressure 82 mm[Hg] Joanie Stentz PA-C Work Phone: [facility] 04-16-2023 12:14-0400 Heart rate 84 /min Joanie Stentz PA-C Work Phone: [facility] 04-16-2023 12:14-0400 Systolic blood pressure 128 mm[Hg] Joanie Stentz PA-C Work Phone: [facility] 02-26-2023 13:14-0400 Body height 185.4 cm Joanie Stentz PA-C Work Phone: [facility] 02-26-2023 13:14-0400 Body mass index (BMI) [Ratio] 35.36 kg/m2 Joanie Stentz PA-C Work Phone: [facility] 02-26-2023 13:14-0400 Body weight 121.56 kg Joanie Stentz PA-C Work Phone: [facility] 02-26-2023 13:14-0400 Diastolic blood pressure 84 mm[Hg] Joanie Stentz PA-C Work Phone: [facility] 02-26-2023 13:14-0400 Heart rate 73 /min Joanie Stentz PA-C Work Phone: [facility] 02-26-2023 13:14-0400 Systolic blood pressure 122 mm[Hg] Joanie Stentz PA-C Work Phone: [facility] 01-16-2023 15:38-0400 Body height 185.4 cm Joanie Stentz PA-C Work Phone: [facility] 01-16-2023 15:38-0400 Body mass index (BMI) [Ratio] 34.96 kg/m2 Joanie Stentz PA-C Work Phone: [facility] 01-16-2023 15:38-0400 Body weight 120.2 kg Joanie Stentz PA-C Work Phone: [facility] 01-16-2023 15:38-0400 Diastolic blood pressure 88 mm[Hg] Joanie Stentz PA-C Work Phone: [facility] 01-16-2023 15:38-0400 Heart rate 80 /min Joanie Stentz PA-C Work Phone: [facility] 01-16-2023 15:38-0400 Systolic blood pressure 130 mm[Hg] Joanie Stentz PA-C Work Phone: [facility] 12-15-2022 16:11-0400 Body height 185.4 cm Joanie Stentz PA-C Work Phone: [facility] 12-15-2022 16:11-0400 Body mass index (BMI) [Ratio] 35.49 kg/m2 Joanie Stentz PA-C Work Phone: [facility] 12-15-2022 16:11-0400 Body weight 122.02 kg Joanie Stentz PA-C Work Phone: [facility] 12-15-2022 16:11-0400 Diastolic blood pressure 80 mm[Hg] Joanie Stentz PA-C Work Phone: [facility] 12-15-2022 16:11-0400 Heart rate 86 /min Joanie Stentz PA-C Work Phone: [facility] 12-15-2022 16:11-0400 Systolic blood pressure 122 mm[Hg] Joanie Stentz PA-C Work Phone: [facility] 08-18-2022 23:30-0500 Diastolic blood pressure 88 mm[Hg] No Pcp Required [facility] 08-18-2022 23:30-0500 Heart rate 81 /min No Pcp Required [facility] 08-18-2022 23:30-0500 Respiratory rate 16 /min No Pcp Required [facility] 08-18-2022 23:30-0500 SaO2% (BldA) [Mass fraction] 98 % No Pcp Required [facility] 08-18-2022 23:30-0500 Systolic blood pressure 126 mm[Hg] No Pcp Required [facility] 08-18-2022 21:37-0500 Body height 185.4 cm No Pcp Required [facility] 08-18-2022 21:37-0500 Body temperature 97.7 [degF] No Pcp Required [facility] 08-18-2022 21:37-0500 Body weight 113.6 kg No Pcp Required [facility] 10-23-2021 22:11-0400 Diastolic blood pressure 97 mm[Hg] No Pcp Required [facility] 10-23-2021 22:11-0400 Heart rate 81 /min No Pcp Required [facility] 10-23-2021 22:11-0400 Respiratory rate 18 /min No Pcp Required [facility] 10-23-2021 22:11-0400 SaO2% (BldA) [Mass fraction] 97 % No Pcp Required [facility] 10-23-2021 22:11-0400 Systolic blood pressure 128 mm[Hg] No Pcp Required [facility] 10-23-2021 21:05-0400 Body height 182.8 cm No Pcp Required [facility] 10-23-2021 21:05-0400 Body temperature 98.06 [degF] No Pcp Required [facility] 10-23-2021 21:05-0400 Body weight 110 kg No Pcp Required [facility] Encounters Encounter Date Encounter Type Care Provider Facility Start: 06-29-2023 End: 06-29-2023 ambulatory [facility] Start: 06-29-2023 End: 06-29-2023 Office outpatient visit 15 minutes Joanieleslee Castillo PA-C Work Phone: [facility] Procedures Date Procedure Procedure Detail Performing Clinician Start: 06-29-2023 FOLLOW UP IN FAMILY MEDICINE JOANIE STENTZ Start: 04-16-2023 FOLLOW UP IN FAMILY MEDICINE JOANEI STENTZ Start: 02-26-2023 FOLLOW UP IN FAMILY MEDICINE JOANIE STENTZ Start: 01-16-2023 FOLLOW UP IN FAMILY MEDICINE JOANIE STENTZ Start: 12-15-2022 MASOUD WITHOUT REFLEX DEENA JOANIE STENTZ Start: 12-15-2022 C-reactive protein JUST IN STENTZ Start: 12-15-2022 CBC panel - Blood by Automated count JOANIE STENTZ Start: 12-15-2022 Comprehensive metabo lic 2000 panel - Serum or Plasma JOANIE STENTZ Start: 12-15-2022 Cyanocobalamin vitamin b-12 JOANIE STENTZ Start: 12-15-2022 Ferritin [Mass/volum e] in Serum or Plasma JOANIE STENTZ Start: 12-15-2022 RHEUMATOID FACTOR JUSTI N STENTZ Start: 12-15-2022 SEDIMENTATION RATE, AUTOMATED JOANIE STENTZ Start: 12-15-2022 TSH WITH REFLEX TO F REE T4 IF ABNORMAL JOANIE STENTZ Start: 12-15-2022 VITAMIN D 25-HYDROXY,TOTAL JOANIE CASTILLO Plan of Treatment Date Care Activity Detail Author Start: 2052 Zoster Vaccines (1 o f 2) Zoster Vaccines (1 of 2) [facility] Start: 10-05-2023 End: 10-05-2023 Patient encounter procedure 10/05/2023 12:15 PM EDT Office Visit [place] [address] [place] [id number] Joanie Castillo PA-C [address] [facility] [place] [address] [facility] Start: 07-02-2023 End: 07-02-2023 Patient encounter procedure 07/02/2023 10:00 AM EST Office Visit [place] [address] [place] [phone] Joanie Castillo PA-C [address] [facility] [place] [address] [facility] Start: 02-26-2023 End: 02-26-2023 Patient encounter procedure 02/26/2023 1:15 PM EDT Office Visit [place] [address] [place] [phone] Joanie Castillo PA-C [address] [facility] [address] [place] [address] [facility] Start: 02-20-2023 Influenza vaccination [facility] Start: 01-16-2023 End: 01-16-2023 Patient encounter procedure 01/16/2023 3:45 PM EDT Office Visit [place] [address] [place] [id number] Joanie Castillo PA-C [address] [facility] [address] [place] [address] [facility] Start: 12-15-2022 End: 12-16-2023 25-hydroxyvitamin D3 [Mass/volume] in Serum or Plasma Vitamin D, Total Lab Routine Fatigue, unspecified type Expected: 12/15/2022 (Approximate), Expires: 12/16/2023 [facility] Work Phone: Payers Date Payer Category Payer Unknown [id number] 2020 Unknown 2020 Unknown [id number] 2002 Unknown [id number] 2.16.84 [id number] 2002 Unknown [id number] 2.16.8 [id number] 2002 Unknown [id number] 2.16.8 [id number] 2002 Unknown [id number] 2.16.8 [id number] 2002 Unknown [id number] 2.16.8 [id number] 2002 Unknown [id number] 2.16.8 [id number] 2002 Unknown [id number] 2.16.8 [id number] 2002 Unknown [id number] 2.16.8 [id number] 2002 Unknown [id number] 2.16.84 [id number] Social History Date Type Detail Facility [facility] Tobacco smoking consumption unknown [facility] Start: 12-15-2022 End: 01-16-2023 History of Social function [facility] Work Phone: Start: 12-15-2022 End: 01-16-2023 Patient Health Questionnaire 2 item (PHQ-2) [Reported] [facility] Work Phone: Start: 2002 Sex Assigned At Not on file [facility] Work Phone: Start: 12-05-2022 End: 06-29-2023 Exposure to SARS-CoV-2 (event) Not sure [facility] Start: 01-16-2023 Tobacco smoking status NHIS Never smoked tobacco [facility] Work Phone: Start: 01-16-2023 Tobacco use and exposure Smokeless tobacco non-user [facility] Work Phone: Clinical Notes 12-15-2022 to 06-29-2023 Joanie Castillo PA-C - 06/29/2023 3:45 PM ESTJustin Stentmarianela, LIZZETTE - 04/16/2023 12:15 PM EDTJustin Stentmarianela, LIZZETTE - 02/26/2023 1:15 PM EDTJustin Stentmarianela, LIZZETTE - 01/16/2023 3:45 PM EDTPatient Instructions Note Date & Type Note Facility 06-29-2023 History of Presen t illness Narrative Subjective Patient ID: Julian Jernigan is a 22 y.o. male who presents for 2 month med check . HPI Senior year at [employer]. IBS: Is following with GI now. JOINT PAIN: Follows with Dr. Bob. LOW D: Compliant with daily 5000IU. SEASONAL ALLERGIES: Dolly prn effective. ASTHMA: Endorses hx of asthma, has rescue on hand prn. Only needs inhaler prn. ANXIETY: Current regimen is Effexor 75mg and Wellbutrin 150mg daily, started Wellbutrin 2 months ago. Saw doctor while at home from school and was increased to 300mg Wellbutrin and this is very effective. GABINO 4 and PHQ 4 today. Review of Systems Constitutional: Negative. Respiratory: Negative. Cardiovascular: Negative. Gastrointestinal: Negative. Objective BP 106/71 Pulse 80 Ht 1.854 m (6' 1 ) Wt 116 kg (255 lb) BMI 33.64 kg/m Physical Exam Constitutional: General: He is [...] Thought content normal. Judgment: Judgment normal. Assessment/Plan Continue Effexor 75mg daily and Wellbutrin 300mg daily. No other medication changes today. Continue with specialists. Follow up 3 months or sooner prn. documented in this encounter [facility] Work Phone: 04-16-2023 History of Presen t illness Narrative Subjective Patient ID: Julian Jernigan is a 22 y.o. male who presents for 2 month med check . HPI Senior year at [employer]. IBS: Endorses chronic stomach concerns. Upset stomach [...] would like him to see GI in [place]. He has been unable to schedule this. [...] normal. Assessment/Plan Switch Vit D to daily [id number]. Continue Effexor, start wellbutrin 150mg daily. Continue with Dr. Bob. Follow up 3 months or sooner prn. documented in this encounter [facility] Work Phone: 02-26-2023 History of Presen t illness Narrative Subjective Patient ID: Julian Jernigan is a 22 y.o. male who presents for 1 month f/u, pt still having all over joint pain. HPI Senior year at [employer]. IBS: Endorses chronic stomach concerns. Upset stomach [...] or sooner prn. documented in this encounter [facility] Work Phone: 01-16-2023 History of Presen t illness Narrative Subjective Patient ID: Julian Jernigan is a 22 y.o. male who presents for 1 month f/u stomach issues worse, joint pain . HPI Senior year at [employer]. IBS: Endorses chronic stomach concerns. Upset stomach [...] recently unremarkable. Will see Dr. Bob in [place] in about 1 month. LOW D: D [...] Bob next month. documented in this encounter [facility] Work Phone: 12-15-2022 History of Presen t illness Narrative Subjective Patient ID: Julian Jernigan is a 22 y.o. male who presents for new pt having issues with all over joint pain (Pt has issues with regulating when full while eating, bloating, loose stools, has BM soon after eating). HPI Senior year at [employer]. IBS: Endorses chronic stomach concerns. Upset stomach [...] or sooner prn. documented in this encounter [facility] Work Phone: 12-15-2022 Instructions Joanie Castillo PA-C - 12/15/2022 4:15 PM EDT Ways [...] your healthcare team if you have questions [facility], 2021 documented in this encounter [facility] Work Phone: documented in this encounter [facility] Work Phone: Evaluation note* Diagnosis Irritable bowel syndrome with diarrhea- Primary Irritable bowel syndrome Arthralgia, unspecified joint Class 2 obesity due to excess calories without serious comorbidity with body mass index (BMI) of 35.0 to 35.9 in adult Excessive gas Mild intermittent asthma without complication documented in this encounter [facility] Work Phone: Evaluation note* Diagnosis Arthralgia, unspecified joint- Primary Anxiety Anxiety state, unspecified Irritable bowel syndrome with diarrhea Irritable bowel syndrome documented in this encounter [facility] Work Phone: Evaluation note* Diagnosis Anxiety- Primary Anxiety state, unspecified Vitamin D deficiency Arthralgia, unspecified joint Mild intermittent asthma without complication Irritable bowel syndrome with diarrhea Irritable bowel syndrome documented in this encounter [facility] Work Phone: Evaluation note* Diagnosis Vitamin D deficiency Anxiety Anxiety state, unspecified Mild intermittent asthma without complication documented in this encounter [facility] Work Phone: Reason for referral (narrative)* Consultation (Routine) - Authorized Specialty Diagnoses / Procedures Referred By Jorge Luis t Referred To Contact Primary Care Procedures Follow Up In Primary Care Joanie Castillo PA-C [address] [facility], [place] [id number] Referral ID Status Reason Start Date Expiration Date V isits Requested Visits Authorized [id number] Authorized 12/15/2022 06/13/2023 1 1 * Imaging (Routine) - Authorized Specialty Diagnoses / Procedures Referred By Contac t Referred To Contact Radiology Diagnoses Arthralgia, unspecified joint Procedures XR hand 1-2 views bilateral Joanie Castillo PA-C [address] [facility], [place] [id number] Referral ID Status Reason Start Date Expiration Date Visits Requested Visits Authorized [id number] Authorized Perform Procedure 12/15/2022 06/13/2023 1 1 [facility] Work Phone: reason for referral (narrative)* Consultation (Routine) - Authorized Specialty Diagnoses / Procedures Referred By Contac t Referred To Contact Primary Care Procedures Follow Up In Primary Care - Established Joanie Castillo PA-C [address] [facility], [place] [phone] Referral ID Status Reason Start Date Expiration Date V isits Requested Visits Authorized [id number] Authorized 01/16/2023 07/15/2023 1 1 [facility] Work Phone: Reagir for referral (narrative)* Consultation (Routine) - Authorized Specialty Diagnoses / Procedures Referred By Contac t Referred To Contact Primary Care Procedures Follow Up In Primary Care - Established Joanie Castillo PA-C [address] [facility], [place] [phone] Referral ID Status Reason Start Date Expiration Date V isits Requested Visits Authorized [id number] Authorized 02/26/2023 08/25/2023 1 1 [facility] Work Phone: Reason for referral (narrative)* Consultation (Routine) - Authorized Specialty Diagnoses / Procedures Referred By Contac t Referred To Contact Primary Care Procedures Follow Up In Primary Care - Established Joanie Castillo PA-C [address] [facility], [place] [address] Referral ID Status Reason Start Date Expiration Date V isits Requested Visits Authorized [id number] Authorized 04/16/2023 04/15/2024 1 1 [facility] Work Phone: Reason for referral (narrative)* Consultation (Routine) - Authorized Specialty Diagnoses / Procedures Referred By Jorge Luis holt Referred To Contact Primary Care Procedures Follow Up In Primary Care - Established Joanie Castillo PA-C [address] [facility], [place] [phone] Referral ID Status Reason Start Date Expiration Date V isits Requested Visits Authorized [id number] Authorized 06/29/2023 06/28/2024 1 1 [facility] Work Phone: Summary Purpose Family History [...] Up In Primary Care - Established Joanie Castillo PA-C [address] [place] [address] Referral ID Status Reason Start Date Expiration Date V isits Requested Visits Authorized [id number] Authorized 02/26/2023 08/25/2023 1 1 Reason Comments [...] Procedures Follow Up In Primary Care Joanie Castillo PA-C [address] [facility], [place] [phone] Referral ID Status Reason Start Date Expiration Date V isits Requested Visits Authorized [id number] Authorized 12/15/2022 06/13/2023 1 1 Reason Comments 1 month f/u, pt still having all over javon int pain Referral ID Status Reason Start Date Expiration Date V isits Requested Visits Authorized [id number] Authorized 01/16/2023 07/15/2023 1 1 Referral ID Status Reason Start Date Expiration Date V isits Requested Visits Authorized [id number] Authorized 04/16/2023 04/15/2024 1 1 Care Teams (unrecognized sec tion and content) [employer]person [employer] Relationship Specialty Start Date End Date Joanie Castillo PA-C [address] [facility] [address] [place] [address] PCP - General Family Medicine 12/04/22 [employer] Relationship Specialty Start Date End Date Joanie Castillo PA-C [address] [facility] [address] [place] [address] PCP - General Family Medicine 12/04/22 [employer]person [employer] Relationship Specialty Start Date End Date Joanie Castillo PA-C [address] [facility] [address] [place] [address] PCP - General Family Medicine 12/04/22 [employer]person [employer] Relationship Specialty Start Date End Date Joanie Castillo PA-C [address] [facility] [address] [place] [address] PCP - General Family Medicine 12/04/22 (unrecognized sect ion and content) No Status Records FoundNo Status Records FoundNo Status Records Found INFORMATION SOURCE (unrecogn ized section and content) DATE CREATED AUTHOR AUTHOR'S ORGANIZ ATION 12/20/2022 [facility] DATE CREATED AUTHOR AUTHOR'S ORGANIZ ATION 07/03/2023 [facility] FOR RECORDS PERTAINING TO PATIENTS WHO ARE [...] BE BASED ON THE PRIMARY CLINICAL RECORDS. [facility]. provides no warranty or guarantee of the accuracy or completeness of information in this document.
[2023-07-13 17:53] LABS: Absolute Lymphocyte Count 2.25 X10^3/uL (0.83-4.51); Absolute Neutrophil Count 4.5 X10^3/uL (2.0-7.7); Basophil# 0.04 X10^3/uL; Basophil% 0.5 % (0-1); Eosinophil# 0.29 X10^3/uL; Eosinophils% 3.8 % (0-5); Hemoglobin 15.8 g/dL (13.0-16.5); Lymphocyte # 2.25 X10^3/ul (0.83-4.51); Lymphocyte % 29.2 % (19-41); Mean Corp Hgb Conc 32.9 g/dL (32-36); Mean Corpuscular Hgb 28.8 pg (27.0-32.0); Mean Corpuscular Volume 87.4 fL (80-94); Mean Platelet Vol. 9.3 fl (6.2-12.0); Monocyte# 0.61 X10^3/uL; Monocyte% 7.9 % (0-10); NRBC Flagged by Analyzer 0 % (0-5); Neutrophil % 58.3 % (47-70); Platelet Count 306 K/mm3 (150-450); RBC Distribution Width CV 12.9 % (11.6-14.6); RBC Distribution Width SD 41.1 fl (35.1-43.9); Red Blood Count 5.49 M/mm3 (4.6-6.2); White Blood Count 7.7 K/mm3 (4.4-11.0)
[2023-07-13 18:08] LABS: ALB/GLOB Ratio 1.2 RATIO (0.9-2.4); AST(SGOT) 28 U/L (15-37); Alanine Aminotransfer ALT/SGPT 58 U/L (16-61); Alkaline Phosphatase 88 U/L (45-117); Anion Gap 3 (5-15); BUN 13 mg/dL (7-18); BUN/Creat Ratio 10.6 RATIO (10-20); Chloride 109 mmol/L (98-107); Creatinine, Serum 1.23 mg/dL (0.70-1.30); EST Glomerular Filtration Rate 79 mL/min (>60); Est Glom Filt Rate - Afr Amer 96 mL/min (>60); Globulin 3.3 g/dL (2.2-4.2); Glucose 78 mg/dL (74-106); Potassium 3.8 mmol/L (3.5-5.1); Protein, Total 7.3 g/dL (6.4-8.2); Sodium Level 140 mmol/L (136-145)
[2023-07-19 00:06] LABS: Calprotectin, Stool 41 ug/g (0-120)
== END | disposition home or self-care (01) ==
LOC: MTLAB 15:50
PROVIDERS: PCP Physician Assistant; Referring Provider Internal Medicine Gastroenterology; Visit Provider Internal Medicine Gastroenterology
DX: M06.4 Inflammatory polyarthropathy (principal); M35.7 Hypermobility syndrome; R19.7 Diarrhea, unspecified; F41.9 Anxiety disorder, unspecified
CPT/HCPCS: 36415; 80053; 83993; 85025

== ENCOUNTER → 2023-09-04 | Outpatient (CLI) | payer BC, SELFPAY ==
[2023-09-04 17:37] LABS: Absolute Neutrophil Count 4.2 X10^3/uL (2.0-7.7); Basophil# 0.04 X10^3/uL; Basophil% 0.5 % (0-1); Eosinophils% 3.9 % (0-5); Hemoglobin 15.3 g/dL (13.0-16.5); Lymphocyte % 29.9 % (19-41); Mean Corp Hgb Conc 33.3 g/dL (32-36); Mean Corpuscular Hgb 29.1 pg (27.0-32.0); Mean Corpuscular Volume 87.6 fL (80-94); Mean Platelet Vol. 9.4 fl (6.2-12.0); Monocyte# 0.83 X10^3/uL; Monocyte% 10.8 % (0-10); NRBC Flagged by Analyzer 0 % (0-5); Neutrophil # 4.17 X10^3/uL (2.7-7.7); Neutrophil % 54.1 % (47-70); Platelet Count 300 K/mm3 (150-450); RBC Distribution Width CV 13.9 % (11.6-14.6); RBC Distribution Width SD 43.2 fl (35.1-43.9); Red Blood Count 5.25 M/mm3 (4.6-6.2); White Blood Count 7.7 K/mm3 (4.4-11.0)
[2023-09-04 17:55] LABS: ALB/GLOB Ratio 1.3 RATIO (0.9-2.4); AST(SGOT) 28 U/L (15-37); Alanine Aminotransfer ALT/SGPT 62 U/L (16-61); Albumin, Serum 4.1 g/dL (3.2-5.0); Alkaline Phosphatase 82 U/L (45-117); Anion Gap 3 (5-15); BUN 11 mg/dL (7-18); BUN/Creat Ratio 9.3 RATIO (10-20); Calcium,Total 8.8 mg/dL (8.5-10.1); Chloride 110 mmol/L (98-107); Creatinine, Serum 1.18 mg/dL (0.70-1.30); EST Glomerular Filtration Rate 83 mL/min (>60); Est Glom Filt Rate - Afr Amer 100 mL/min (>60); Globulin 3.2 g/dL (2.2-4.2); Glucose 78 mg/dL (74-106); Potassium 3.9 mmol/L (3.5-5.1); Protein, Total 7.3 g/dL (6.4-8.2); Sodium Level 141 mmol/L (136-145)
== END | disposition home or self-care (01) ==
LOC: MTLAB 16:01
PROVIDERS: PCP Physician Assistant; Referring Provider Internal Medicine Rheumatology; Visit Provider Internal Medicine Rheumatology
DX: M06.4 Inflammatory polyarthropathy (principal); M35.7 Hypermobility syndrome
CPT/HCPCS: 36415; 80053; 85025